=== PATIENT | male | born 1985 | race Caucasian/White ===

== ENCOUNTER 2017-04-05 10:59 | Emergency (ER) | payer OTHER ==
[~2017-04-05] VITALS: Ht 182.9 cm; Wt 79.4 kg
[~2017-04-05 10:59] MED LIST: NEXIUM20 M1 PO; POLYTRIM EYE DR10 ML OPH; PROPRANOLOL HCL10 M1 PO; TRAZODONE HCL100 M1 PO; TYLENOL EXTRA500 M2 PO; VALPROIC A250 MG/51 PO; ZYRTEC10 M3 PO
--- NOTE | 2017-04-05 11:37 | ED GENERAL ADULT ---
History of Present Illness General Chief Complaint: General Adult Stated Complaint: CRYING ALL MORNING Source: family (mother), old records Exam Limitations: autism Vital Signs & Intake/Output Vital Signs & Intake/Output Vital Signs Date Time Temp Pulse Resp B/P B/P Pulse O2 O2 Flow FiO2 Mean Ox Delivery Rate 04/05 1159 97.8 88 20 117/68 96 Room Air 04/05 1111 97.7 20 Allergies Coded Allergies: No Known Allergies (08/25/16) Reconcile Medications Acetaminophen (Tylenol Extra Strength) 500 MG TABLET 1 TAB PO PRN PRN HEADACHES/PAIN (Reported) Cetirizine HCl (Zyrtec) 10 MG TABLET 1 TAB PO BID ALLERGIES (Reported) Esomeprazole Magnesium (Nexium) 20 MG CAPSULE.DR 1 CAP PO DAILY GERD ( Reported) Polytrim (Polytrim Eye Drops) 10,000 UNIT-1 MG/ML DROPS 1 GTT OPH Q6 CONJUNCTIVITIS Polytrim (Polytrim Eye Drops) 10,000 UNIT-1 MG/ML DROPS 1 GTT OPH Q6 conjunctivitis Propranolol HCl 10 MG TABLET 1 TAB PO TID AGITATION (Reported) Trazodone HCl 100 MG TABLET 1 TAB PO QPM SLEEP (Reported) Valproic Acid (As Sodium Salt) (Valproic Acid) 250 MG/5 ML SOLUTION 250 MG PO BID AGITATION (Reported) Triage Note: PER MOTHER, PT HAS BEEN CRYING ALL MORNING. PT WITH HX OF AUTISM. UNABLE TO OBTAIN VS IN TRIAGE. MOTHER STATES HE HAS A HX OF EAR INFECTIONS Triage Nurses Notes Reviewed? yes Onset: Abrupt Duration: day(s): (1), better, gone now Timing: recent history Injury Environment: home Severity: mild Severity Numbers: 5 No Modifying Factors: none Associated Symptoms: denies HPI: 31-year-old male with a history of autism that is nonverbal and history of tardive dyskinesia comes in for further evaluation with his mother after she states that he was crying uncontrollably earlier this morning. She states he's had episodes like this before and was found to have an ear infection. He has not had it any complaints today he slept normally last night there's been no nausea vomiting diarrhea no fever no chills no pulling on his ears no sore throat cough congestion. No recent trauma or injury. He has had a normal bowel movement today (URI ROTH,MARISELA) Past History Travel History Traveled to [place] past 21 day No Medical History Any Pertinent Medical History? see below for history Neurological: AUTISM TARDIVE DISCON. Surgical History Surgical History: none Psychosocial History What is your primary language Icelandic Tobacco Use: Never used ETOH Use: denies use Illicit Drug Use: denies illicit drug use Family History Hx Contributory? No (MARISELA AYALA) Review of Systems Review of Systems Constitutional: Reports: see HPI. All Other Systems: Reviewed and Negative Comments Review of systems: See HPI, All other systems negative. Constitutional, no chills no fever, no malaise HEENT: No visual changes no sore throat no congestion, no ear pain Cardiovascular: No chest pain , no palpitation , Skin: no rashes, no change in skin Respiratory: No dyspnea no cough no sputum GI: No nausea no vomiting, no diarrhea, no bloating/constipation : No dysuria Muscle skeletal: No joint pain, no joint swelling, no back pain, no neck pain, Neurologic: No numbness no confusion, no headache Psych: No stress Heme/endocrine: No bruising Immunology: No lymphadenopathy (MARISELA AYALA) Physical Exam Physical Exam General Appearance: well developed/nourished, no apparent distress, alert Comments: Well-developed well-nourished patient in no apparent distress. Head/Face: Atraumatic, no maxillary/frontal sinus tenderness, no facial swelling Eyes: PERRL, EOMI, no conjunctival injection. No nystagmus Ear:External auditory canal and Tympanic membranes clear, no erythema, no FB. Nose: atraumatic.Normal inspection: No bleeding, no septal hematoma Throat: Moist mucous membranes.Pharynx normal. No pharyngeal erythema/exudate seen. No stridor/drooling or assymetry. No swelling or edema. Neck: Supple, no lymphadenopathy, FROM Back: FROM Cardiovascular: Regular rate and rhythms no murmurs rubs or gallops, Respiratory: Chest nontender.There were no bony deformities, no asymmetry. No respiratory distress. Patient speaking in full complete sentences. Breath sounds clear to auscultation bilaterally: NO W/R/R Abdomen: Soft nontender no rebound or guarding Extremities: full range of motion Neuro: awake, alert, and oriented to person, place and time. There were no obvious focal neurologic abnormalities. Skin: Warm & dry;No appreciable rash on exposed skin Psych: Mood affect normal, normal memory normal judgment. Core Measures ACS in differential dx? No CVA/TIA Diagnosis: No Severe Sepsis Present: No Septic Shock Present: No (MARISELA AYALA) Progress Differential Diagnoses I considered the following diagnoses in my evaluation of the patient: [Otitis media or otitis externa pharyngitis viral syndrome intra-abdominal process autism Plan of Care: Patient eating lunch comfortably he's had no crying episodes here his mother states that he is back to his normal self he has had other episodes of uncontrollable crying in the past for which she was seen here with unremarkable workup, there is no source of infection he is afebrile medically appears well smiling interactive. Discussed with his mother plan of care she will follow up with his primary care this week she'll observe for any concerns or signs of infection she feels comfortable with this plan Initial ED EKG: none (MARISELA AYALA) Departure Departure Time of Disposition: 1148 Disposition: HOME OR SELF CARE Condition: Stable Clinical Impression Primary Impression: Autism Referrals: KOLTON WESTBROOK,YASMINE Loco (PCP/Family) Additional Instructions: follow up with his pmd this week. monitor for any changes in his baseline mental status, or if he develops fever, cough, nausea vomiting diarrhea. return to the ER with any concerns Departure Forms: Customer Survey General Discharge Information (MARISELA AYALA) PA/CANCELLATION CLERK Co-Sign Statement Statement: ED Attending supervision documentation- [] I saw and evaluated the patient. I have also reviewed all the pertinent lab results and diagnostic results. I agree with the findings and the plan of care as documented in the PA's/CANCELLATION CLERK's documentation. [X] I have reviewed the ED Record and agree with the PA's/CANCELLATION CLERK's documentation. [] Additions or exceptions (if any) to the PAs/CANCELLATION CLERK's note and plan are summarized below: [] (ADAM WESTBROOK,JEFFERY Mclean) Critical Care Note Critical Care Note Critical Care Time: non-applicable (MARISELA AYALA)
[2017-04-05 11:59] VITALS: BP 117/68
== END 2017-04-05 12:00 ==
LOC: ERH 10:59
DX: F84.0 Autistic disorder (principal)